=== PATIENT | male | born 1990 | race Caucasian/White ===

== ENCOUNTER 2018-04-24 07:02 | Day surgery (SDC) | payer MEDICAID ==
[~2018-04-24] VITALS: Ht 182.9 cm; Wt 98.4 kg
[2018-04-24] MEDS ORDERED: CELLCEPT 250MG250 MG PO (07:44)
[2018-04-24] MEDS ORDERED: PRAVACHOL 20MG20 MG PO (07:44)
[2018-04-24] MEDS ORDERED: PROGRAF 1MG1 MG PO (07:44)
[2018-04-24] MEDS ORDERED: NORVASC 10MG10 MG PO (07:45)
[2018-04-24] MEDS ORDERED: ZANTAC 150MG T150 MG PO (07:45)
[2018-04-24 07:46] VITALS: BP 124/77; PULSE 74; TEMP 98.3
[2018-04-24 09:30] VITALS: BP 103/73; PULSE 64
[2018-04-24 09:40] VITALS: BP 114/58; PULSE 68; TEMP 98.1
== END 2018-04-24 09:45 | disposition home or self-care (01) ==
LOC: EDBD 07:02 → SDCO 07:02
DX: K92.1 Melena (principal); K64.1 Second degree hemorrhoids; K59.00 Constipation, unspecified; Z95.0 Presence of cardiac pacemaker; Z94.1 Heart transplant status; Z94.0 Kidney transplant status; Z79.899 Other long term (current) drug therapy; I11.9 Hypertensive heart disease without heart failure; K21.9 Gastro-esophageal reflux disease without esophagitis
CPT/HCPCS: J2704; J3010; J7030

== ENCOUNTER 2019-09-27 11:02 | Emergency (ER) | payer MEDICARE, MEDICAID ==
[~2019-09-27] VITALS: Ht 180.3 cm; Wt 100.0 kg
[~2019-09-27 11:02] MED LIST: CELLCEPT 250MG250 MG PO; NORVASC 10MG10 MG PO; PRAVACHOL 20MG20 MG PO; PROGRAF 1MG1 MG PO; ZANTAC 150MG T150 MG PO
[2019-09-27 11:05] VITALS: TEMP 98.2
[2019-09-27 11:16] LABS: BASO % 0.4 % (0.0-2.0); EOS # 0.4 (0.0-0.7); EOS % 7.1 % (0-4.0); GRAN # 2.6 (1.4-6.5); GRAN % 51.1 % (42.2-75.2); HEMATOCRIT 47.3 % (42.0-52.0); HEMOGLOBIN 15.6 g/dl (13.5-18.0); LYMPH # 1.1 (1.2-3.4); MEAN CELL VOLUME 95 fl (80.0-100.0); MEAN CORPUSCULAR HEMOGLOBIN 31 pg (27.0-31.0); MEAN CORPUSCULAR HGB CONC 33 g/dl (33.0-37.0); MEAN PLATELET VOLUME 9.2 fl (7.4-10.4); PLATELET COUNT 200 K/mm3 (130-400); RED BLOOD COUNT 4.99 M/mm3 (4.20-5.60); REDCELL DISTRIBUTION WIDTH-CV 12.3 % (11.5-14.5)
[2019-09-27 11:24] LABS: INR 1.1 (0.8-3.0); PROTHROMBIN TIME 12.9 SECONDS (9.7-12.8)
[2019-09-27 11:26] LABS: ALANINE AMINOTRANSFERASE 23 U/L (21-72); ALBUMIN 4.6 gm/dL (3.5-5.0); ALKALINE PHOSPHATASE 75 U/L (50-136); ANION GAP 12 mmol/L (7-16); AST,SGOT 36 U/L (15-37); BILIRUBIN,TOTAL 0.6 mg/dL (0.0-1.0); BLOOD UREA NITROGEN 13 mg/dL (9-20); CALCIUM 9.6 mg/dL (8.4-10.2); CARBON DIOXIDE 26 mmol/L (22-30); CHLORIDE 102 mmol/L (98-107); CREATININE, serum 1.28 (0.66-1.25); GLUCOSE 102 mg/dL (74-106); LIPASE 87 U/L (23-300); POTASSIUM 3.8 mmol/L (3.4-5.0); SODIUM 140 mmol/L (137-145); TOTAL PROTEIN 8.9 gm/dL (6.4-8.2)
[2019-09-27 11:38] LABS: TROPONIN-I < 0.012 ng/mL (0.000-0.035)
[2019-09-27 16:01] VITALS: BP 128/87; PULSE 74
== END 2019-09-27 16:05 | disposition short-term general hospital (02) ==
LOC: COL.ER 11:02
PROVIDERS: Emergency Medicine
DX: R09.02 Hypoxemia (principal); Z95.9 Presence of cardiac and vascular implant and graft, unspecified; Z99.81 Dependence on supplemental oxygen
CPT/HCPCS: J2270

== ENCOUNTER → 2019-12-22 | Outpatient (CLI) | payer MEDICARE, MEDICAID | LOC: COL.LAB 08:00 | DX: K64.9 Unspecified hemorrhoids (principal) ==